=== PATIENT | male | born 1945 | race Caucasian/White ===

== ENCOUNTER 2016-12-09 13:22 | Day surgery (SDC) | payer OTHER, MEDICAID ==
[2016-12-09] MEDS ORDERED: TRIAMCINOLONE ACETONIDE 200 MG/5 ML MDV IM ONE (14:37)
[2016-12-09] MEDS ORDERED: IOPAMIDOL (ISOVUE-M 300) 15 ML VIAL IV ONE (14:37)
--- NOTE | 2016-12-09 20:12 | IR ---
Lumbar Epidural Steroid Injection Via Caudal Epidural Catheter HISTORY: Severe spinal stenosis, recurrence 9 out of 10 back pain. The patient has benefited from p revious injections, including the injection of September 18, 2016. Medication: Local anesthetic, only, at the preference of the patient. Consent: Risks and benefits of the procedure were discussed in detail. Informed consent was obtaine d. TECHNIQUE: With the patient prone, the upper intergluteal cleft was prepped and draped in sterile fa shion. 1% Xylocaine was used for local anesthetic. Using biplane fluoroscopic guidance, an 18-gauge Tuohy needle was inserted into the sacral spinal canal. Stylette was removed. No return of fluid ( CSF or blood) when the patient coughed on command. Coaxial 2.2-[place] Springrtead epidural catheter and stiffening wire were advanced cephalad through the Tuohy needle. Biplane spot images were obtained. I could get no contrast to exit the endhole of this catheter. Needle and catheter were removed toge ther. A second puncture of the inferior sacral aperture was performed with 18-gauge Tuohy needle, fo llowed by a new Springrtead microcatheter. Stiffening wire was removed and the hub was attached. Inject ion of Isovue-M 300 led to prompt opacification of a paravertebral vein on the right side. The tip o f the catheter was repositioned and reinjected, with the same unfortunate result. Catheter and needl e were removed. A new 18-gauge Tuohy needle was placed, followed by the Hustead microcatheter and st iffening wire, reaching a different portion of the epidural space by angling the tip of the needle. The stiffening wire was removed and the Hustead catheter was injected with 3 mL of Isovue-M 300. 2. 5 mL of Kenalog (100 mg) and 3 mL of preservative-free 1% Xylocaine were injected. Biplane spot imag es were obtained before and following injection of medication. Needle and catheter were removed. St erile dressing was applied. The patient tolerated the procedure well and was allowed to leave the de partment after a brief observation. Fluoroscopy time: 2.5 minutes AP, 0.2 minutes lateral. Estimated exposure in mGy: 133. Epidurogram: The first catheter does not allow contrast injection. Injection of the second catheter position yields prompt opacification of paravertebral vein, unsuitable for steroid injection. The t hird position of the epidural catheter results in good opacification of distorted epidural space from L4 through S1. During injection of the final catheter, the patient spontaneously remarks that his u sual right sciatica is provoked. Features of chronic disk degeneration are most severe at L2-L3 and L3-L4. Scoliosis and subluxations are present. IMPRESSION: Lumbar epidural injection of long-acting steroid and rapid-acting anesthetic via a cauda lly introduced epidural catheter. PQRS measures: Medications were listed in the medical record. The patient does not smoke. Prophyla ctic antibiotic: Unnecessary. Venous thromboembolism prophylaxis: Unnecessary.
== END 2016-12-09 15:15 | disposition home or self-care (01) ==
LOC: FIMAGING 13:22
PROVIDERS: ATTEND Radiology Diagnostic Radiology
PROC: 3E0S33Z Introduction of Anti-inflammatory into Epidural Space, Percutaneous Approach (ICD-10-PCS; principal; 2016-12-09)
PROC: 3E0S3BZ Introduction of Anesthetic Agent into Epidural Space, Percutaneous Approach (ICD-10-PCS; principal; 2016-12-09)
DX: M54.16 Radiculopathy, lumbar region (principal); M48.06 Spinal stenosis, lumbar region
CPT/HCPCS: J3301; Q9967

== ENCOUNTER 2017-02-22 13:01 | Day surgery (SDC) | payer OTHER, MEDICAID ==
[2017-02-22] MEDS ORDERED: IOPAMIDOL (ISOVUE-M 300) 15 ML VIAL IV ONE (14:20)
[2017-02-22] MEDS ORDERED: TRIAMCINOLONE ACETONIDE 200 MG/5 ML MDV IM ONE (14:20)
[2017-02-22] MEDS ORDERED: BUPIVACAINE 0.5% 30 ML SDV ONE (14:20)
== END 2017-02-22 15:00 | disposition home or self-care (01) ==
LOC: FIMAGING 13:01
PROVIDERS: ATTEND Radiology Diagnostic Radiology
PROC: 3E0S3BZ Introduction of Anesthetic Agent into Epidural Space, Percutaneous Approach (ICD-10-PCS; principal; 2017-02-22)
PROC: 3E0S33Z Introduction of Anti-inflammatory into Epidural Space, Percutaneous Approach (ICD-10-PCS; principal; 2017-02-22)
DX: M48.06 Spinal stenosis, lumbar region (principal); M54.31 Sciatica, right side
CPT/HCPCS: J3301; Q9967

== ENCOUNTER → 2017-08-05 | Day surgery (SDC) | payer OTHER, MEDICAID ==
[~2017-08-05] MED LIST: IOPAMIDOL (ISOVUE-M 300) 15 ML VIAL ONE; TRIAMCINOLONE ACETONIDE 200 MG/5 ML MDV IM ONE
== END | disposition home or self-care (01) ==
LOC: FIMAGING 10:37
PROVIDERS: ATTEND Radiology Diagnostic Radiology
PROC: 3E0S3BZ Introduction of Anesthetic Agent into Epidural Space, Percutaneous Approach (ICD-10-PCS; principal; 2017-08-05)
PROC: 3E0S33Z Introduction of Anti-inflammatory into Epidural Space, Percutaneous Approach (ICD-10-PCS; principal; 2017-08-05)
DX: M48.06 Spinal stenosis, lumbar region (principal); M54.31 Sciatica, right side
CPT/HCPCS: J3301; Q9967

== ENCOUNTER → 2017-09-08 | Outpatient (CLI) | payer OTHER, MEDICAID | LOC: FIMAGING 15:56 | PROVIDERS: ATTEND Family Medicine | DX: M48.061 Spinal stenosis, lumbar region without neurogenic claudication (principal); M51.36 Other intervertebral disc degeneration, lumbar region; M46.96 Unspecified inflammatory spondylopathy, lumbar region; M46.95 Unspecified inflammatory spondylopathy, thoracolumbar region; M46.97 Unspecified inflammatory spondylopathy, lumbosacral region ==

== ENCOUNTER → 2017-09-16 | Outpatient (CLI) | payer OTHER, MEDICAID | LOC: FIMAGING 12:11 | PROVIDERS: ATTEND Nurse Practitioner | DX: M41.82 Other forms of scoliosis, cervical region (principal); M41.85 Other forms of scoliosis, thoracolumbar region; M51.36 Other intervertebral disc degeneration, lumbar region; M43.12 Spondylolisthesis, cervical region; I65.21 Occlusion and stenosis of right carotid artery; Z98.1 Arthrodesis status ==

== ENCOUNTER 2017-11-24 13:59 | Day surgery (SDC) | payer OTHER, MEDICAID ==
[2017-11-24] MEDS ORDERED: TRIAMCINOLONE ACETONIDE 200 MG/5 ML MDV IM ONE (15:55)
[2017-11-24] MEDS ORDERED: IOPAMIDOL (ISOVUE-M 300) 15 ML VIAL ONE ×2 (15:55→16:09)
== END 2017-11-24 16:03 | disposition home or self-care (01) ==
LOC: FIMAGING 13:59
PROVIDERS: ATTEND Radiology Diagnostic Radiology
PROC: 3E0S3BZ Introduction of Anesthetic Agent into Epidural Space, Percutaneous Approach (ICD-10-PCS; principal; 2017-11-24)
PROC: BR191ZZ Fluoroscopy of Lumbar Spine using Low Osmolar Contrast (ICD-10-PCS; principal; 2017-11-24)
PROC: 3E0S33Z Introduction of Anti-inflammatory into Epidural Space, Percutaneous Approach (ICD-10-PCS; principal; 2017-11-24)
DX: M48.061 Spinal stenosis, lumbar region without neurogenic claudication (principal); M54.16 Radiculopathy, lumbar region
CPT/HCPCS: J3301; Q9967

== ENCOUNTER 2018-02-21 12:33 | Day surgery (SDC) | payer OTHER, MEDICAID ==
[2018-02-21] MEDS ORDERED: TRIAMCINOLONE ACETONIDE 200 MG/5 ML MDV IM ONE (14:00)
[2018-02-21] MEDS ORDERED: LIDOCAINE 1% 300 MG/30 ML SDV ONE (14:00)
== END 2018-02-21 15:15 | disposition home or self-care (01) ==
LOC: FIMAGING 12:33
PROVIDERS: ATTEND Radiology Diagnostic Radiology
PROC: 3E0R3BZ Introduction of Anesthetic Agent into Spinal Canal, Percutaneous Approach (ICD-10-PCS; principal; 2018-02-21)
PROC: 3E0R33Z Introduction of Anti-inflammatory into Spinal Canal, Percutaneous Approach (ICD-10-PCS; principal; 2018-02-21)
DX: M48.00 Spinal stenosis, site unspecified (principal); M54.10 Radiculopathy, site unspecified
CPT/HCPCS: J3301

== ENCOUNTER 2018-05-06 13:07 | Day surgery (SDC) | payer OTHER, MEDICAID ==
[2018-05-06] MEDS ORDERED: IOPAMIDOL (ISOVUE-M 300) 15 ML VIAL ONE (13:52)
[2018-05-06] MEDS ORDERED: TRIAMCINOLONE ACETONIDE 200 MG/5 ML MDV IM ONE (13:52)
== END 2018-05-06 15:00 | disposition home or self-care (01) ==
LOC: FIMAGING 13:07
PROVIDERS: ATTEND Radiology Diagnostic Radiology
PROC: 3E0S3BZ Introduction of Anesthetic Agent into Epidural Space, Percutaneous Approach (ICD-10-PCS; principal; 2018-05-06)
PROC: BR1B1ZZ Fluoroscopy of Lumbosacral Joint using Low Osmolar Contrast (ICD-10-PCS; principal; 2018-05-06)
PROC: 3E0S33Z Introduction of Anti-inflammatory into Epidural Space, Percutaneous Approach (ICD-10-PCS; principal; 2018-05-06)
DX: M54.17 Radiculopathy, lumbosacral region (principal)
CPT/HCPCS: J3301; Q9967

== ENCOUNTER → 2018-09-09 | Outpatient (CLI) | payer OTHER, MEDICAID | LOC: FIMAGING 11:59 | PROVIDERS: ATTEND Family Medicine | DX: M17.12 Unilateral primary osteoarthritis, left knee (principal) ==

== ENCOUNTER → 2018-12-12 | Day surgery (SDC) | payer OTHER, MEDICAID | END | disposition home or self-care (01) | LOC: FIMAGING 12:53 | PROVIDERS: ATTEND Radiology Diagnostic Radiology | PROC: BR191ZZ Fluoroscopy of Lumbar Spine using Low Osmolar Contrast (ICD-10-PCS; principal; 2018-12-12) | PROC: 3E0S33Z Introduction of Anti-inflammatory into Epidural Space, Percutaneous Approach (ICD-10-PCS; principal; 2018-12-12) | PROC: 3E0S3BZ Introduction of Anesthetic Agent into Epidural Space, Percutaneous Approach (ICD-10-PCS; principal; 2018-12-12) | DX: M54.16 Radiculopathy, lumbar region (principal) | CPT/HCPCS: J3301; Q9967 ==

== ENCOUNTER 2019-02-23 13:19 | Day surgery (SDC) | payer OTHER, MEDICAID ==
[2019-02-23] MEDS ORDERED: TRIAMCINOLONE ACETONIDE 200 MG/5 ML MDV IM ONE (13:36)
[2019-02-23] MEDS ORDERED: IOPAMIDOL (ISOVUE-M 300) 15 ML VIAL ONE (13:37)
== END 2019-02-23 15:00 | disposition home or self-care (01) ==
LOC: FIMAGING 13:19
PROVIDERS: ATTEND Radiology Diagnostic Radiology
PROC: 3E0S33Z Introduction of Anti-inflammatory into Epidural Space, Percutaneous Approach (ICD-10-PCS; principal; 2019-02-23)
PROC: 3E0S3BZ Introduction of Anesthetic Agent into Epidural Space, Percutaneous Approach (ICD-10-PCS; principal; 2019-02-23)
PROC: B01B1ZZ Fluoroscopy of Spinal Cord using Low Osmolar Contrast (ICD-10-PCS; principal; 2019-02-23)
DX: M54.16 Radiculopathy, lumbar region (principal)
CPT/HCPCS: J3301; Q9967